=== PATIENT | female | born 1990 | race Caucasian/White ===

== ENCOUNTER 2021-06-21 14:26 | Emergency (ER) | payer OTHER, SELFPAY ==
--- NOTE | 2021-06-21 14:33 | ED.SKABFB ---
HPI - Skin/Abscess/Foreign Bdy General Chief complaint: Skin/Abscess/Foreign Body Stated complaint: cyst on tailbone Time Seen by Provider: 06/21/21 14:35 Source: patient and RN notes reviewed Mode of arrival: ambulatory Limitations: no limitations History of Present Illness HPI narrative: 30-year-old female presents with concern for a cyst on her tailbone. Reports its been tender and sore for about 2 weeks and she has been using warm compresses and warm baths with some improvement but over the last 2 days it has not helped. She reports she has had to have this drained in the past. She reports since she has had it drained 6 years ago she has flares but she is able to manage them with warm compresses. She denies fever, bodies, chills, sweats, drainage from the area MD complaint: abscess/boil Related Data Home Medications Medication Instructions Recorded Confirmed No Home Medications 06/21/21 06/21/21 Allergies Allergy/AdvReac Type Severity Reaction Status Date / Time diphenhydramine Allergy Unknown Verified 06/21/21 14:38 [From Kaitlin] Review of Systems Review of Systems: CONSTITUTIONAL: Denies malaise, chills, sweats, or fever. EYES: Denies redness, or discharge. ENT: Denies rhinorrhea, congestion, swollen lips, swollen tongue CARDIOVASCULAR: Denies chest pain, palpitations, or edema. RESPIRATORY: Denies cough or dyspnea. GASTROINTESTINAL: Denies abdominal pain, nausea, vomiting SKIN: Reports a tender cyst near her tailbone MUSCULOSKELETAL: Denies joint pain or myalgia. NEUROLOGIC: Denies headache. All systems reviewed & are unremarkable except as noted in HPI and below PMFSH Comments At time of signature, agree with nursing past medical, surgical, social and family history. There is no relevant family history pertinent to the presenting complaint Exam Narrative: GENERAL: Well-appearing, well-nourished, and in no acute distress. HEAD: Normocephalic, atraumatic. EYES: PERRLA, conjunctivae clear ENT: Mucous membranes moist. NECK: Supple. No lymphadenopathy CHEST: Clear to auscultation. No respiratory distress. HEART: Regular rate and rhythm. SKIN: Warm, dry. Palpable cyst 1.5 cm in diameter to the left of the tailbone without erythema, induration, warmth. It is tender to palpation NEURO: Alert and oriented x3. PSYCH: Normal mood and affect Course Course Emergency Course: The patient that the cyst appears to be relatively small and does not appear to be infected so antibiotics at this time are not deemed necessary. Discussed with patient that she needs to see general surgery for further treatment of this recurring cyst. Patient is aware of diagnosis, understands and agrees to treatment plan. Anticipatory guidance given. Patient agrees to follow-up as directed and is aware of reasons to seek care at the emergency department. Portions of this record may have been created with voice recognition software Level of Care: Express Care Visit Vital Signs Vital signs: Reviewed. Procedures Abscess I/D other: Date of Incision: 06/21/21 Time of Incision: 14:45 Side (if applicable): left Local Anesthetic: lidocaine 1% Amount of anesthesia used (mL): 3 Technique: incised with #11 blade Amount of fluid expressed (mL): 2 Irrigation: No Packing used?: none I&D Results: Blood and Other (Cloudy fluid) Abcess I&D Additional Comments: Refer to general surgery for further evaluation and treatment MDM - Skin/Abscess/Foreign Bdy MDM Narrative Medical decision making narrative: Exam findings show no acute concerns or changes; patient is non-toxic appearing and is in no distress. Patient is appropriate for outpatient treatment and follow-up. Critical Care Time Critical Care Time Critical Care Time: No Discharge Plan Discharge Clinical Impression: Pilonidal cyst Patient Disposition: Home, Self-Care Condition: Stable Instructions: Pil
[2021-06-21 14:37] VITALS: BP 129/80; PULSE 82; RESP 16; TEMP 36.4; O2SAT 100
[2021-06-21 14:38] VITALS: BP 129/80; PULSE 82; RESP 16; TEMP 36.4; O2SAT 100
== END 2021-06-21 15:07 | disposition home or self-care (01) ==
PROVIDERS: Emergency Provider Nurse Practitioner
DX: L05.01 Pilonidal cyst with abscess (principal)
CPT/HCPCS: 10080; 99212; G0463

== ENCOUNTER 2022-10-04 15:46 | Emergency (ER) | payer OTHER, SELFPAY ==
--- NOTE | 2022-10-04 16:00 | ED.URI ---
HPI - URI/Sore Throat General Chief Complaint: Upper Respiratory Infection Stated Complaint: COLD SYMPTOMS Source: patient and RN notes reviewed Mode of arrival: ambulatory Limitations: no limitations History of Present Illness HPI Narrative: Patient is a 31-year-old female who presents to the [facility] with cold symptoms for the past week. Patient states that she has a worsening cough. The cough is frequent but is normally nonproductive. Patient states that occasionally she is able to bring something up with the cough. she denies chest pain or shortness of breath. Denies nasal congestion or recent fever. Related Data Allergies Allergy/AdvReac Type Severity Reaction Status Date / Time bacitracin Allergy Intermediate Rash Verified 10/04/22 15:48 [From Neosporin ([id number])] neomycin Allergy Intermediate Rash Verified 10/04/22 15:48 [From Neosporin ([id number])] polymyxin B Allergy Intermediate Rash Verified 10/04/22 15:48 [From Neosporin ([id number])] diphenhydramine Allergy Unknown Verified 10/04/22 15:48 [From Benadryl] Review of Systems Review of Systems: CONSTITUTIONAL: Denies fever, chills, or sweats. EYES: Denies visual changes, redness, or discharge. ENT: Denies otalgia and sore throat CARDIOVASCULAR: Denies chest pain, palpitations, or edema. RESPIRATORY: Reports cough but denies dyspnea. GASTROINTESTINAL: Denies abdominal pain, nausea, vomiting, or diarrhea. GENITOURINARY: Denies dysuria or hematuria. SKIN: Denies rash or itching. MUSCULOSKELETAL: Denies back pain, joint pain, or myalgia. NEUROLOGIC: Denies headache, numbness, or weakness. Pertinent positives per HPI. 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 There is no relevant family history pertinent to the patient complaint. Exam Narrative: GENERAL: This is a well-nourished, well-developed patient, in no apparent distress. HEAD: normocephalic, atraumatic. EYES: PERRL. Sclera clear/white. Vision is grossly intact. EARS: External ears normal, auditory canals clear and without drainage, TMs normal without perforation. Hearing grossly intact. NOSE: External nose normal with no obvious nasal discharge, nares without redness, no rhinorrhea. THROAT: Mucous membranes moist, posterior pharynx clear. NECK: Neck supple, non-tender without lymphadenopathy, masses or thyromegaly. CARDIOVASCULAR: Regular rate and rhythm without murmurs, gallops, or rubs. RESPIRATORY: Clear to auscultation. Breath sounds equal bilaterally. No wheezes, rales, or rhonchi. GASTROINTESTINAL: Abdomen soft, non-tender, nondistended. Bowel sounds are active. No hepato-splenomegaly, or palpable masses. No guarding. SKIN: warm, intact with no suspicious lesions or rash, good texture and turgor. NEURO: awake, alert, and oriented to person, place and time. There were no obvious focal neurologic abnormalities. EXTREMITIES: No clubbing, cyanosis, or edema. No joint tenderness, effusion, or edema noted. BACK: Nontender without deformity or crepitance. No flank tenderness. Course Course Level of Care: Express Care Visit Vital Signs Vital signs
[2022-10-04 16:01] VITALS: BP 104/83; PULSE 73; RESP 16; TEMP 36.6; O2SAT 100
== END 2022-10-04 16:09 | disposition home or self-care (01) ==
PROVIDERS: Emergency Provider Nurse Practitioner
DX: J06.9 Acute upper respiratory infection, unspecified (principal)
CPT/HCPCS: 99213; G0463